=== PATIENT | male | born 1940 | race Caucasian/White ===

== ENCOUNTER → 2024-03-23 07:28 | Outpatient (REF) | payer MEDICARE, BC, SELFPAY ==
[2024-03-23 09:22] LABS: ALT (SGPT) 19 U/L (0-50); Blood Urea Nitrogen 34 mg/dl (9-20); Calcium 8.9 mg/dl (8.4-10.2); Carbon Dioxide 28 mmol/L (22-30); Chloride 108 mmol/L (98-107); Glucose 85 mg/dl (70-99); Glycohemoglobin (HgbA1c) 6.5 % (4.0-5.6); Potassium 4.1 mmol/L (3.5-5.1); Sodium 140 mmol/L (135-145); eGFR 54.51
[2024-03-23 09:50] LABS: PSA, Total - Diagnostic 0.08 ng/ml (0.0-4.0)
== END ==
LOC: HWLAB 07:28
PROVIDERS: ATTENDING PHYSICIAN Internal Medicine; FAMILY PHYSICIAN Student in an Organized Health Care Education/Training Program
DX: Z90.79 Acquired absence of other genital organ(s) (principal); E10.22 Type 1 diabetes mellitus with diabetic chronic kidney disease; N18.31 Chronic kidney disease, stage 3a; C61 Malignant neoplasm of prostate
CPT/HCPCS: 36415; 80048; 83036; 84153; 84460

== ENCOUNTER → 2024-06-18 09:41 | Outpatient (REF) | payer MEDICARE, BC, SELFPAY ==
[2024-06-18 12:34] LABS: ALT (SGPT) 24 U/L (0-50); Blood Urea Nitrogen 31 mg/dl (9-20); Calcium 9.3 mg/dl (8.4-10.2); Carbon Dioxide 31 mmol/L (22-30); Chloride 102 mmol/L (98-107); Glucose 98 mg/dl (70-99); Potassium 4.3 mmol/L (3.5-5.1); Sodium 137 mmol/L (135-145); eGFR 59.63
[2024-06-18 15:24] LABS: Glycohemoglobin (HgbA1c) 6.7 % (4.0-5.6)
== END ==
LOC: HWLAB 09:41
PROVIDERS: ATTENDING PHYSICIAN Internal Medicine Cardiovascular Disease; FAMILY PHYSICIAN Student in an Organized Health Care Education/Training Program
DX: E10.22 Type 1 diabetes mellitus with diabetic chronic kidney disease (principal); N18.31 Chronic kidney disease, stage 3a
CPT/HCPCS: 36415; 80048; 83036; 84460

== ENCOUNTER → 2024-09-29 07:14 | Outpatient (REF) | payer MEDICARE, BC, SELFPAY ==
[2024-09-29 09:44] LABS: ALT (SGPT) 23 U/L (0-50); Blood Urea Nitrogen 30 mg/dl (9-20); Calcium 8.9 mg/dl (8.4-10.2); Carbon Dioxide 26 mmol/L (22-30); Chloride 107 mmol/L (98-107); Glucose 127 mg/dl (70-99); Sodium 144 mmol/L (135-145); eGFR > 60.00
[2024-09-29 10:52] LABS: Glycohemoglobin (HgbA1c) 6.4 % (4.0-5.6)
== END ==
LOC: HWLAB 07:14
PROVIDERS: ATTENDING PHYSICIAN Internal Medicine; FAMILY PHYSICIAN Family Medicine
DX: E10.22 Type 1 diabetes mellitus with diabetic chronic kidney disease (principal); N18.31 Chronic kidney disease, stage 3a
CPT/HCPCS: 36415; 80048; 83036; 84460

== ENCOUNTER → 2024-12-29 10:34 | Outpatient (REF) | payer MEDICARE, BC, SELFPAY ==
[2024-12-29 12:31] LABS: Glycohemoglobin (HgbA1c) 6.4 % (4.0-5.6)
[2024-12-29 13:16] LABS: ALT (SGPT) 23 U/L (0-50); Blood Urea Nitrogen 26 mg/dl (9-20); Carbon Dioxide 29 mmol/L (22-30); Chloride 100 mmol/L (98-107); Glucose 122 mg/dl (70-99); Potassium 4.3 mmol/L (3.5-5.1); Sodium 138 mmol/L (135-145); eGFR 59.63
== END ==
LOC: HWLAB 10:34
PROVIDERS: ATTENDING PHYSICIAN Internal Medicine; FAMILY PHYSICIAN Family Medicine
DX: E10.22 Type 1 diabetes mellitus with diabetic chronic kidney disease (principal); N18.31 Chronic kidney disease, stage 3a
CPT/HCPCS: 36415; 80048; 83036; 84460

== ENCOUNTER → 2025-01-11 12:47 | Outpatient (REF) | payer MEDICARE, BC, SELFPAY | LOC: HWRCS 12:47 | PROVIDERS: ATTENDING PHYSICIAN Internal Medicine Cardiovascular Disease; FAMILY PHYSICIAN Nurse Practitioner Family | DX: Z95.1 Presence of aortocoronary bypass graft (principal) | CPT/HCPCS: 93306 ==

== ENCOUNTER → 2025-04-08 09:37 | Outpatient (REF) | payer MEDICARE, BC, SELFPAY ==
[2025-04-08 11:11] LABS: % Basophils 0.4 % (0-2); % Eosinophils 2.7 % (0-6); % Immature Granulocytes 0.2 % (0-0.5); % Lymphocytes 29.2 % (20.5-51.1); % Neutrophils 57.5 % (42.2-75.2); Absolute Eosinophils 0.2 10^3/uL (0-0.7); Absolute Lymphocytes 1.6 10^3/uL (1.2-3.4); Absolute Monocytes 0.6 10^3/uL (0.1-0.6); Absolute Neutrophils 3.2 10^3/uL (1.4-6.5); Hematocrit 42.3 % (39.0-52.0); Hemoglobin 14.2 g/dL (13.0-18.0); Mean Corp Hgb Conc. 33.6 g/dL (33.0-37.0); Mean Corpuscular Hgb 32.9 pg (27.0-31.0); Mean Corpuscular Volume 98.1 fL (80.0-94.0); Nucleated Red Blood Cells % 0 % (-); Platelet Count 134 10^3/uL (130-400); Red Blood Cell Count 4.31 10^6/uL (4.70-6.10); Red Cell Dist. Width 11.9 % (11.5-14.5); White Blood Cell Count 5.6 10^3/uL (4.8-10.8)
[2025-04-08 11:20] LABS: HDL Cholesterol 56 mg/dl; LDL Cholesterol, Calculated 75 mg/dl; Total Cholesterol 146 mg/dl (50-199); Triglyceride 79 mg/dl (10-149); Very Low Density Lipoprotein 15 mg/dl (0-30)
[2025-04-08 12:04] LABS: Microalbumin, Random Urine 24.4 mg/dl (0.6-1.7); Microalbumin/creatinine Ratio 323.2 mg/g
[2025-04-08 12:21] LABS: PSA, Total - Screen 0.08 ng/ml (0.0-4.0); TSH 2.46 uIU/ml (0.47-4.68)
[2025-04-08 21:01] LABS: Urine Albumin 2+ (Neg - Trace); Urine Bilirubin Negative (Negative); Urine Character Slightly Cloudy (Clear); Urine Color Yellow; Urine Glucose Negative (Negative); Urine Ketone Negative (Negative); Urine Leukocyte 1+ (Negative); Urine Nitrite Positive (Negative); Urine Occult Blood 2+ (Negative); Urine Urobilinogen Negative (Neg - 1+)
[2025-04-08 21:09] LABS: Urine Bacteria Many (Negative); Urine Red Blood Cell 0-2 /HPF (0-2); Urine Squamous Cell 0-2 /LPF (Few); Urine White Cell 16-20 /HPF (0-5)
== END ==
LOC: HWLAB 09:37
PROVIDERS: ATTENDING PHYSICIAN Family Medicine; REFERRING PHYSICIAN Specialist
DX: Z13.0 Encounter for screening for diseases of the blood and blood-forming organs and certain disorders involving the immune mechanism (principal); Z13.220 Encounter for screening for lipoid disorders; Z13.29 Encounter for screening for other suspected endocrine disorder; E10.9 Type 1 diabetes mellitus without complications; N18.31 Chronic kidney disease, stage 3a; Z12.5 Encounter for screening for malignant neoplasm of prostate; E11.9 Type 2 diabetes mellitus without complications
CPT/HCPCS: 36415; 80061; 81003; 81015; 82043; 82570; 84443; 85025; G0103

== ENCOUNTER → 2025-07-15 07:40 | Outpatient (REF) | payer MEDICARE, BC, SELFPAY ==
[2025-07-15 12:53] LABS: Glycohemoglobin (HgbA1c) 6.3 % (4.0-5.6)
[2025-07-15 14:17] LABS: Microalb - Urine Creatinine 82.500 mg/dl
[2025-07-15 14:21] LABS: ALT (SGPT) 35 U/L (0-50); Blood Urea Nitrogen 26 mg/dl (9-20); Calcium 8.7 mg/dl (8.4-10.2); Carbon Dioxide 28 mmol/L (22-30); Chloride 103 mmol/L (98-107); Glucose 126 mg/dl (70-99); Potassium 4.2 mmol/L (3.5-5.1); Sodium 137 mmol/L (135-145); eGFR 59.26
[2025-07-15 14:39] LABS: Microalbumin, Random Urine 23.5 mg/dl (0.6-1.7)
== END ==
LOC: HWLAB 07:40
PROVIDERS: ATTENDING PHYSICIAN Internal Medicine; FAMILY PHYSICIAN Family Medicine
DX: N39.0 Urinary tract infection, site not specified (principal); R80.9 Proteinuria, unspecified; E10.22 Type 1 diabetes mellitus with diabetic chronic kidney disease; N18.31 Chronic kidney disease, stage 3a
CPT/HCPCS: 36415; 80048; 82043; 82570; 83036; 84460; 87086